=== PATIENT | female | born 1995 | race Caucasian/White ===

== ENCOUNTER 2018-08-18 09:32 | Outpatient (CLI) | payer OTHER ==
--- NOTE | 2018-08-18 10:37 | ULT ---
RIGHT UPPER QUADRANT ULTRASOUND: Date: 08/18/18 HISTORY: Right upper quadrant pain. FINDINGS: Real-time imaging of the right upper quadrant shows echogenic foci with shadowing within the gallblad julianne compatible with small stones. There are marked fatty changes of the liver, which measures 18.4 cm in length. The common duct is in the 5.0 mm range. Right kidney is normal in size. It shows some moderate right-sided hydronephrosis of uncertain etiolo gy. IMPRESSION: 1. Multiple cholelithiasis with a normal caliber common duct. 2. Moderate right-sided hydronephrosis of uncertain etiology. 3. Diffuse fatty change of the liver. POS: TPC
== END 2018-08-18 09:33 | disposition home or self-care (01) ==
LOC: SCSULT 09:32
PROVIDERS: ATTEND Advanced Practice Midwife
DX: R10.11 Right upper quadrant pain (principal); K80.20 Calculus of gallbladder without cholecystitis without obstruction; K76.0 Fatty (change of) liver, not elsewhere classified; N13.30 Unspecified hydronephrosis
CPT/HCPCS: 76705

== ENCOUNTER 2018-11-06 04:01 | Inpatient (IN) | payer OTHER ==
[2018-11-06] MEDS ORDERED: Meperidine HCl/PF 25 MG/ML VIAL ONE (12:10)
[2018-11-13] MEDS ORDERED: Carboprost 250 MCG/ML AMP IM PRN (06:16)
[2018-11-13] MEDS ORDERED: NS / Oxytocin 40 units/1000ml 1,000 ML IV PRN (06:16)
[2018-11-13] MEDS ORDERED: Misoprostol 200 MCG TAB PR PRN (06:16)
[2018-11-13] MEDS ORDERED: HYDROcodone/Acetaminophen 5/325 mg Tablet PO PRN ×2 (06:16)
[2018-11-13] MEDS ORDERED: Ibuprofen 800 MG TAB PO PRN (06:16)
[2018-11-13] MEDS ORDERED: Methylergonovine 0.2 MG/ML VIAL IM PRN (06:16)
[2018-11-13] MEDS ORDERED: Lidocaine 1% (PF) 30 ML VIAL SC PRN (06:16)
[2018-11-13] MEDS ORDERED: Promethazine HCl 25 MG/ML VIAL IM PRN (06:16)
[2018-11-13] MEDS ORDERED: Diphenoxylate HCl/Atropine Tablet PO PRN ×2 (06:16)
[2018-11-13] MEDS: Lactated Ringer's 1,000 ML IV SCH ×3 (06:20→19:37)
[2018-11-13 06:37] LABS: Hemoglobin 12.4 g/dL (12.0-16.0); Mean Corpuscular HGB CONC 33.3 g/dL (32.0-36.0); Mean Corpuscular Hemoglobin 27.8 pg (27.0-31.0); Mean Corpuscular Volume 83.5 fL (78.0-98.0); Platelet Count 181 thou/uL (130-400); RBC Distribution Width 12.6 % (11.5-14.5); Red Blood Cell (RBC) Count 4.46 mill/uL (4.20-5.40); White Blood Cell (WBC) Count 7.5 thou/uL (4.8-10.8)
[2018-11-13 06:48] VITALS: BMI 32.3
[2018-11-13 07:17] LABS: Syphilis Antibody Nonreactive (Nonreactive); Syphilis Antibody Index 0.03 S/CO (<1.00 Non-Reactive)
[2018-11-13 07:18] LABS: HBSAg Index 0.31 S/CO (0-0.99); Hep B Surf Ag Non-Reactive S/CO (NonReactive)
[2018-11-13] MEDS: NS w/ Oxytocin 10 units 500 ML IV SCH ×2 (07:58→20:56)
[2018-11-13] MEDS: Ondansetron PF 4 MG/2 ML Vial IVP PRN (08:03)
--- NOTE | 2018-11-13 12:59 | PDOC.LDHP ---
Labor and Delivery H&P Chief complaint: scheduled induction (for cholecystitis.) Due date: 12/01/18 Dating criteria: last menstrual period (Verified with first trimester ultrasound ) Grav: 2 Para: 1 OB History Details: G1 Current complications: other (Cholilithiasis Cholicystitis Fatty liver infiltrates) Current medications: pre-chelsey vitamins Previous surgical history: none Allergies/Adverse Reactions: Allergies Allergy/AdvReac Type Severity Reaction Status Date / Time No Known Drug Allergies Allergy Verified 11/13/18 06:30 Social history: none - Physical Exam Vital signs reviewed and normal: yes Abnormal vital signs: 93/52 on admission General: resting, breathing through contractions Heart: RRR Lungs: nonlabored breathing Abdomen: gravid Extremeties: trace edema FHT: category 1 [place] contractions every: q2 - Vaginal Exam cm dilated: 2 Effacement: 50% Station: -2 - OB Labs Blood type: A RH: positive Antibody Screen: negative HIV: negative RPR: negative HEPSAg: negative 1 hour GCT: positive GBS: negative Urine drug screen: negative Rubella: non-immune - Assessment L&D Assessment: medically indicated induction - Plan Plan: admit to L&D, other -: Pitocin AROM - clear fluid anticipate
[2018-11-13] MEDS: Butorphanol Tartrate 1 MG/ML VIAL SLOW IVP PRN ×5 (14:25→22:37)
[2018-11-14] MEDS: Ondansetron PF 4 MG/2 ML Vial IVP PRN (00:01)
--- NOTE | 2018-11-14 00:51 | PDOC.LDPN ---
Labor & Delivery Progress Note - Subjective Subjective: painful contractions - Objective Abnormal vital signs: Temp 99.3 General: NAD Dilation: 8 Effacement: 100% Station: 0 FHT: category 1 [place] contractions every: q2-q2.5 - Assessment (1) Encounter for induction of labor Code(s): Z34.90 - ENCNTR FOR SUPRVSN OF NORMAL , UNSP, UNSP TRIMESTER Current Visit: Yes Status: Acute Plan: continue plan of care -: anticipate
--- NOTE | 2018-11-14 02:01 | PDOC.OPDEL ---
OB Operative/Delivery Note Delivery Dr/Surgeon: Light Pre-Delivery Diagnosis: active labor, medically indicated induction Procedure/Post Delivery Dx: spontaneous vaginal delivery Weeks gestation: 37 Anesthesia: local - Findings A Sex: male Weight: 7 lb 3 oz - 1 min: 9 - 5 min: 9 - Additional Findings/Plan Placenta delivered: spontaneous Repaired Obstetrical Laceration: 1st degree Estimated blood loss: 300mL see nurse note for QBL Post delivery plan: routine recovery
[2018-11-14] MEDS ORDERED: Bisacodyl 10 MG SUPP PR PRN (04:00)
[2018-11-14] MEDS ORDERED: NS / Oxytocin 40 units/1000ml 1,000 ML IV SCH (04:00)
[2018-11-14] MEDS ORDERED: Milk Of Magnesia 30 ML UDCUP PO PRN (04:00)
[2018-11-14] MEDS ORDERED: HYDROcodone/Acetaminophen 5/325 mg Tablet PO PRN (04:00)
[2018-11-14] MEDS ORDERED: Methylergonovine 0.2 MG/ML VIAL IM PRN (04:00)
[2018-11-14] MEDS ORDERED: Benzocaine-Menthol 82.5 ML CAN TOP PRN (04:00)
[2018-11-14] MEDS ORDERED: Misoprostol 200 MCG TAB VAG PRN (04:00)
[2018-11-14] MEDS: HYDROcodone/Acetaminophen 5/325 mg Tablet PO PRN ×3 (04:45→19:44)
[2018-11-14] MEDS: Ferrous Sulfate 325 MG TAB PO SCH ×2 (08:40→16:31)
[2018-11-14] MEDS: Docusate Calcium (SURFAK) 240 MG CAP PO SCH (08:59)
[2018-11-14] MEDS ORDERED: Adacel (T-DAP) 0.5 ML SYRINGE IM ONE (09:00)
--- NOTE | 2018-11-14 16:51 | PDOC.PP ---
Post Progress Note Post Day #: 0 Subjective: Doing well. having some perineal pain, but says it is normal she supposes. Trying to breastfeed, but he has not eaten for the past two times she tried to feed him. PO intake tolerated: yes Flatus: yes Ambulation: yes Vital Signs (12 hours) Temp Pulse Resp BP Pulse Ox 11/14/18 11:23 98.6 F 84 20 109/70 11/14/18 08:18 98.1 F 92 20 91/52 L 97 11/14/18 06:20 98.1 F 79 18 95/59 L Weight Weight 200 lb - Physical Examination General: NAD Cardiovascular: no m/r/g, RRR Respiratory: non-labored breathing Abdominal: lochia (minimal) Extremities: negative homans (B) Psychiatric: A&Ox3, normal affect Result Diagrams: 11/13/18 06:29 Additional Labs: Post Labs Blood Type A POSITIVE 11/13/18 08:08 Hep Bs Antigen Non-Reactive S/CO (NonReactive) 11/13/18 06:29 (1) Encounter for induction of labor Code(s): Z34.90 - ENCNTR FOR SUPRVSN OF NORMAL , UNSP, UNSP TRIMESTER Status: Acute - Assessment/Plan a: G2 now p2 sp following IOL for cholecystitis complicated by 1st degree perineal laceration. P: consultation ordered Routine care Plan for discharge home tomrrow.
[2018-11-14] MEDS: Ibuprofen 800 MG TAB PO SCH (22:36)
[2018-11-15] MEDS: Docusate Calcium (SURFAK) 240 MG CAP PO SCH ×2 (00:53→09:13)
[2018-11-15 01:20] VITALS: TEMP 98.1
[2018-11-15] MEDS: Ibuprofen 800 MG TAB PO SCH ×2 (05:53→14:28)
[2018-11-15 08:02] VITALS: BP 98/56
--- NOTE | 2018-11-15 08:07 | PDOC.PP ---
Post Progress Note Post Day #: 1 Subjective: dong well, getting figured out. Breasts feel different. She is able to urintate, ambulate and pass gas. Her perineum is feeling better. PO intake tolerated: yes Flatus: yes Ambulation: yes Vital Signs (12 hours) Temp Pulse Resp BP Pulse Ox 11/15/18 08:01 98.1 F 65 20 98/56 L 95 11/15/18 00:52 98.1 F 68 16 99/53 L Weight Weight 200 lb - Physical Examination General: NAD Cardiovascular: no m/r/g Respiratory: non-labored breathing Abdominal: lochia (minimal) Extremities: negative homans (B) Skin: no rash Neurological: no gross focal deficits Psychiatric: A&Ox3, normal affect Result Diagrams: 11/13/18 06:29 Additional Labs: Post Labs Blood Type A POSITIVE 11/13/18 08:08 Hep Bs Antigen Non-Reactive S/CO (NonReactive) 11/13/18 06:29 (1) Encounter for induction of labor Code(s): Z34.90 - ENCNTR FOR SUPRVSN OF NORMAL , UNSP, UNSP TRIMESTER Status: Acute (2) (spontaneous vaginal delivery) Code(s): O80 - ENCOUNTER FOR FULL-TERM UNCOMPLICATED DELIVERY Status: Acute (3) Cholecystitis Code(s): K81.9 - CHOLECYSTITIS, UNSPECIFIED Status: Acute - Assessment/Plan A: G2 now P2 sp following Medically indicated IOL for cholecystis and cholelithiasis with a NML PPD #1 exam. P: consult prior to discharge routine care until discharge Inst to call Dr. Wilkes's office to post for cholecyctectomy Call office with any signs of infection discharge home today
[2018-11-15 08:29] LABS: Hemoglobin 9.8 g/dL (12.0-16.0); Mean Corpuscular HGB CONC 33.1 g/dL (32.0-36.0); Mean Corpuscular Hemoglobin 27.8 pg (27.0-31.0); Mean Platelet Volume 9.9 fL (7.4-10.4); Platelet Count 149 thou/uL (130-400); RBC Distribution Width 12.8 % (11.5-14.5); Red Blood Cell (RBC) Count 3.52 mill/uL (4.20-5.40); White Blood Cell (WBC) Count 7.5 thou/uL (4.8-10.8)
[2018-11-15] MEDS: Ferrous Sulfate 325 MG TAB PO SCH (09:15)
[2018-11-15] MEDS ORDERED: Measles/Mumps/Rubella 10 MCG/0.5 ML VIAL SC ONE (13:30)
== END 2018-11-15 17:20 | disposition home or self-care (01) | DRG 806 ==
LOC: L&D/OP 04:01 → EDSTATUS 16:57 → UNDOADMIN 11-10 08:30 → L&D 11-10 08:30 → 3SW 11-14 04:28
PROVIDERS: ADMIT Obstetrics & Gynecology; ATTEND Obstetrics & Gynecology
PROC: 10E0XZZ Delivery of Products of Conception, External Approach (ICD-10-PCS; principal; 2018-11-14)
PROC: 0HQ9XZZ Repair Perineum Skin, External Approach (ICD-10-PCS; 2018-11-14)
PROC: 3E0234Z Introduction of Serum, Toxoid and Vaccine into Muscle, Percutaneous Approach (ICD-10-PCS; 2018-11-15)
DX: O99.62 Diseases of the digestive system complicating childbirth (principal); K80.10 Calculus of gallbladder with chronic cholecystitis without obstruction; Z37.0 Single live birth; Z3A.37 37 weeks gestation of pregnancy; O70.0 First degree perineal laceration during delivery; Z23 Encounter for immunization
CPT/HCPCS: 36415; 85027; 86780; 86850; 86900; 86901; 87340; 90707; 90715; J0595; J2001; J2175; J2405

== ENCOUNTER 2018-11-06 04:07 | Inpatient (IN) | payer OTHER ==
[2018-11-06] MEDS ORDERED: Morphine 2 MG/ML SYRINGE ONE ×2 (04:43→08:06)
[2018-11-06 04:49] LABS: #Lymphocytes 1.2 thou/uL (1.20-3.40); #Monocytes 0.4 thou/uL (0.11-0.59); #Neutrophils 7.3 thou/uL (1.40-6.50); %Basophils 0.1 % (0.0-1.0); %Eosinophils 0.5 % (0.0-10.0); %Lymphocytes 12.9 % (21.0-51.0); %Monocytes 4.3 % (0.0-10.0); %Neutrophils 82.2 % (42.0-75.0); Hemoglobin 11.9 g/dL (12.0-16.0); Mean Corpuscular HGB CONC 33.7 g/dL (32.0-36.0); Mean Corpuscular Hemoglobin 27.9 pg (27.0-31.0); Mean Corpuscular Volume 82.8 fL (78.0-98.0); Mean Platelet Volume 9.6 fL (7.4-10.4); Platelet Count 149 thou/uL (130-400); RBC Distribution Width 12.5 % (11.5-14.5); Red Blood Cell (RBC) Count 4.26 mill/uL (4.20-5.40); White Blood Cell (WBC) Count 8.9 thou/uL (4.8-10.8)
[2018-11-06] MEDS ORDERED: Morphine 4 MG/ML VIAL ONE (05:03)
[2018-11-06] MEDS ORDERED: Ondansetron PF 4 MG/2 ML Vial ONE (05:06)
[2018-11-06 05:20] LABS: ALT (SGPT) 49 U/L (8-55); AST (SGOT) 85 U/L (5-34); Albumin 3.4 g/dL (3.5-5.0); Alkaline Phosphatase 186 U/L (40-150); Anion Gap 16 mmol/L (10-20); BUN (Urea Nitrogen) 6 mg/dL (7.0-18.7); Bilirubin, Total 1.3 mg/dL (0.2-1.2); Calc. Creatinine Clearance 0 mL/min (70-130); Calcium 8.7 mg/dL (7.8-10.44); Carbon Dioxide 18 mmol/L (22-29); Chloride 106 mmol/L (98-107); Estimated GFR-MDRD Greater than 90; Globulin 3.3 g/dL (2.4-3.5); Glucose 121 mg/dL (70-105); Lipase 30 U/L (8-78); Potassium 3.8 mmol/L (3.5-5.1); Protein, Total 6.7 g/dL (6.0-8.3); Sodium 136 mmol/L (136-145)
[2018-11-06] MEDS ORDERED: Piperacillin/Tazobactam 3.375 GM VIAL ONE (08:07)
--- NOTE | 2018-11-06 08:16 | ULT ---
RIGHT UPPER QUADRANT ULTRASOUND: INDICATIONS: History of gallstones. [id number] . Elevated LFTs with right upper quadrant pain. FINDINGS: There are multiple gallstones within the gallbladder. The gallbladder is moderately distended. Ther e is pericholecystic edema and mild gallbladder wall thickening. There is report of a positive sonog raphic Reece sign. The right kidney measures 12.3 x 5.8 x 8 cm. The common bile duct measures 5.8 mm. There is prominent fatty infiltration of the liver. The visualized aspects of the pancreas are unremarkable. There is worsening hydronephrosis of the right kidney, now moderate to severe in exten t when compared to the prior, dating 08/28/2018. A ureteral jet is present within the right aspect o f the bladder. IMPRESSION: 1. Findings suspicious for acute calculous cholecystitis. Recommend surgical consultation. 2. Fatty liver. 3. Worsening moderate to severe right-sided hydronephrosis with a visualized right ureteral jet. Fi ndings are likely related to partial obstruction from the patient's term . 4. Persistent fatty liver. POS: BH
[2018-11-06] MEDS ORDERED: Ondansetron PF 4 MG/2 ML Vial IVP PRN (10:23)
[2018-11-06] MEDS ORDERED: Promethazine HCl 25 MG/ML VIAL IM PRN (10:23)
[2018-11-06] MEDS ORDERED: Lactated Ringer's 1,000 ML IV SCH (10:30)
--- NOTE | 2018-11-06 11:22 | HP ---
TIME OF ADMISSION: 10:15 a.m. REASON FOR ADMISSION: Thirty-six weeks' gestation with acute cholecystitis. HISTORY OF PRESENT ILLNESS: Ms. Farrar is a 23-year-old, G2, P1, EDC of 12/01 placing her at 36 and 3 weeks gestation, who has a known history of cholelithiasis, symptomatic during this . She has also been noted to have a liver ultrasound consistent with fatty infiltration. She presents with one half day of worsening pain, nausea, and vomiting. She was seen in the emergency room with a diagnosis of acute cholecystitis was noted without elevated white count. The patient's liver enzymes were mildly elevated with AST of 85. She is brought to Labor and delivery unit for further evaluation and care. She received Zosyn 3.375 x1 in the emergency room as well as morphine. 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 Blood type A positive, antibody negative. Pap negative. Rubella nonimmune. VDRL nonreactive. Hepatitis B, GC, chlamydia negative. Group B strep pending. 50 g GTT was abnormal. 3-hour GTT was within normal limits. PAST MEDICAL HISTORY: Medical history is significant for cholelithiasis. PAST SURGICAL HISTORY: None. ALLERGIES: DENIES. MEDICATIONS: vitamins. SOCIAL HISTORY: Denies tobacco, alcohol, or IV drug use. FAMILY HISTORY: Noncontributory. REVIEW OF SYSTEMS: Noncontributory. PHYSICAL EXAMINATION: GENERAL: White female resting comfortably. VITAL SIGNS: Currently blood pressure 110/72, pulse 85, respirations are 18, and temperature 98.6. HEENT: Within normal limits. LUNGS: Clear to auscultation bilaterally. HEART: Regular rhythm. ABDOMEN: Soft. She has discomfort in the right upper quadrant to palpation. The fundal height is 36 cm. FHTs 130s to 140s. GENITALIA: Vulva lesions. Vagina, discharge. Cervix parous, 1, 25, -2, cephalic, posterior and soft. EXTREMITIES: No clubbing, cyanosis, or edema. IMPRESSION: Thirty-six weeks' gestation with pain and nausea consistent with acute cholecystitis. No evidence of immediate need for surgical intervention. Of note, the patient's ultrasound revealed moderate hydronephrosis on the right, consistent with as well as some fatty liver and acute calculous cholecystitis. White count is 8.9, hematocrit is 35, and platelet count is 149, base mets within normal limits. AST is elevated at 85, ALT is normal at 49, alkaline phosphatase is 186, total bilirubin is 1.3. PLAN: We will admit the patient, give her Zosyn 3.375 q.6 hours. Begin clear liquid diet. IV fluids. Acute pain control. Follow CBC and LFTs. If the patient is symptomatically improved and LFTs do not worsen, anticipate discharge home at 24 to 48 hours with scheduled induction of labor in seven days, early term 37 weeks' gestation. We will discuss the patient's care with has been previously consulted on her case. Job ID: [id number]
[2018-11-06] MEDS: Lactated Ringer's 1,000 ML IV SCH ×2 (12:06→21:40)
[2018-11-06] MEDS: Meperidine HCl/PF 25 MG/ML VIAL IM/IV PRN ×3 (12:14→21:49)
[2018-11-06] MEDS: Piperacillin/Tazobactam 3.375 GM in Sodium Chloride 0.9% 100 ML IVPB SCH ×2 (14:00→20:02)
[2018-11-06 14:03] VITALS: BMI 32.3
[2018-11-06] MEDS: Mag-Al 1200 mg/1200 mg/30 ML UDCUP PO PRN (17:05)
[2018-11-07] MEDS: Mag-Al 1200 mg/1200 mg/30 ML UDCUP PO PRN (00:13)
[2018-11-07] MEDS: Piperacillin/Tazobactam 3.375 GM in Sodium Chloride 0.9% 100 ML IVPB SCH ×3 (02:12→13:45)
[2018-11-07] MEDS: Lactated Ringer's 1,000 ML IV SCH (05:27)
--- NOTE | 2018-11-07 07:43 | DIS ---
DATE OF ADMISSION: 11/06/2018 DATE OF DISCHARGE: 11/07/2018 DISCHARGE DIAGNOSIS: Third trimester with acute cholecystitis. SUMMARY OF HOSPITAL COURSE: Ms. Farrar was admitted on the with an acute attack of acute cholecystitis. The patient was noted to have gallstones. Pain resolved with antibiotics (Zosyn) and antiemetics. Laboratory initially on admission was with normal white count, normal CBC, mildly elevated AST at 85, alkaline phosphatase at 186, and elevated total bilirubin at 1.3. Her common duct was approximately 5 mm. Ultrasound revealed stones. Findings consistent with acute cholecystitis as well as fatty liver and some moderate hydronephrosis on the right. Current vital signs include a T-max of 98.2, temperature now 98.1, pulse 89, respirations 18, and blood pressure 108/57. The patient is resting comfortably. States her pain and nausea resolved. Physical exam reveals only mild discomfort on palpation of the right upper quadrant and is otherwise unremarkable. IMPRESSION: 36 weeks' gestation with acute cholecystitis, resolving and nausea. PLAN: 1. We will obtain limited OB ultrasound for EFW and CHRISTOPHER prior to discharge today. 2. I have called into Dr. Suarez to see what kinds of antibiotic regimen he would recommend upon discharge. 3. Discharge with Zosyn. 4. Induction of labor at 37 weeks, next Tuesday with Pitocin by Trini Vincent, certified nurse water pipe installer, who is the patient's obstetric provider. Job ID: [id number]
[2018-11-07 07:46] LABS: #Basophils 0.1 thou/uL (0.0-0.2); #Lymphocytes 1.4 thou/uL (1.20-3.40); #Monocytes 0.3 thou/uL (0.11-0.59); #Neutrophils 2.9 thou/uL (1.40-6.50); %Basophils 1.3 % (0.0-1.0); %Eosinophils 0.8 % (0.0-10.0); %Lymphocytes 29.3 % (21.0-51.0); %Monocytes 6.9 % (0.0-10.0); %Neutrophils 61.7 % (42.0-75.0); Hemoglobin 10.8 g/dL (12.0-16.0); Mean Corpuscular HGB CONC 33.9 g/dL (32.0-36.0); Mean Corpuscular Hemoglobin 28.1 pg (27.0-31.0); Mean Corpuscular Volume 82.9 fL (78.0-98.0); Mean Platelet Volume 9.2 fL (7.4-10.4); Platelet Count 154 thou/uL (130-400); RBC Distribution Width 12.4 % (11.5-14.5); Red Blood Cell (RBC) Count 3.85 mill/uL (4.20-5.40); White Blood Cell (WBC) Count 4.6 thou/uL (4.8-10.8)
[2018-11-07 08:00] LABS: ALT (SGPT) 86 U/L (8-55); AST (SGOT) 92 U/L (5-34); Albumin 2.8 g/dL (3.5-5.0); Alkaline Phosphatase 190 U/L (40-150); Anion Gap 13 mmol/L (10-20); BUN (Urea Nitrogen) Less than 4 mg/dL (7.0-18.7); Calc. Creatinine Clearance 202 mL/min (70-130); Carbon Dioxide 22 mmol/L (22-29); Chloride 108 mmol/L (98-107); Estimated GFR-MDRD Greater than 90; Globulin 2.9 g/dL (2.4-3.5); Glucose 70 mg/dL (70-105); Potassium 3.8 mmol/L (3.5-5.1); Protein, Total 5.7 g/dL (6.0-8.3); Sodium 139 mmol/L (136-145)
[2018-11-07] MEDS: Meperidine HCl/PF 25 MG/ML VIAL IM/IV PRN (11:03)
--- NOTE | 2018-11-07 11:29 | ULT ---
Ultrasound obstetrical Limited: 11/07/2018 HISTORY: 23-year-old female in third trimester of . Evaluate weight and amniotic fluid volume. FINDINGS: number: Guerrero lie: Cephalic Maternal cervix: Obscured Amniotic fluid volume: CHRISTOPHER 14.5 cm Placenta: Anterior and maternal left lateral. No previa. Head, four-chamber heart, stomach, and bladder are visualized. The rest of the anatomy is not v isualized. heart rate: 120 bpm BPD: 9.4 cm 38 weeks 2 days HC: 33.7 cm 38 weeks 4 days AC: 32.3 cm 36 weeks 2 days FL: 7.1 cm 36 weeks 1 day AUA: 37 weeks 2 days EDC: 11/26/2018 EFW: 3001 g +/- 444 g (6 lbs. 10 oz. +/- 16 ounces) IMPRESSION: 1. Third trimester intrauterine gestation. 2. CHRISTOPHER 14.5 cm 3. Estimated weight of 3001 g +/- 444 g
[2018-11-07 11:42] VITALS: TEMP 97.9
[2018-11-07 16:52] VITALS: BP 112/70
== END 2018-11-07 16:55 | disposition home health service (06) | DRG 832 ==
LOC: ERS 04:07 → OBSVTOIN 10:08 → L&D 10:08 → 3SW 18:22
PROVIDERS: ADMIT Obstetrics & Gynecology; ATTEND Obstetrics & Gynecology
DX: O99.613 Diseases of the digestive system complicating pregnancy, third trimester (principal); K81.0 Acute cholecystitis; O99.343 Other mental disorders complicating pregnancy, third trimester; Z3A.36 36 weeks gestation of pregnancy; F41.9 Anxiety disorder, unspecified; F32.9 Major depressive disorder, single episode, unspecified
CPT/HCPCS: 36415; 76705; 76805; 80053; 83690; 85025; 87081; 96361; 96365; 96372; 96375; 96376; J0500; J2175; J2270; J2405; J2543; J7050

== ENCOUNTER 2018-11-24 19:06 | Inpatient (IN) | payer OTHER ==
[2018-11-24 20:23] LABS: #Eosinphils 0.1 thou/uL (0.0-0.7); #Lymphocytes 1.6 thou/uL (1.20-3.40); #Monocytes 0.6 thou/uL (0.11-0.59); %Basophils 0.2 % (0.0-1.0); %Eosinophils 0.7 % (0.0-10.0); %Lymphocytes 15.2 % (21.0-51.0); %Monocytes 5.7 % (0.0-10.0); %Neutrophils 78.2 % (42.0-75.0); Mean Corpuscular HGB CONC 32.4 g/dL (32.0-36.0); Mean Corpuscular Hemoglobin 27.2 pg (27.0-31.0); Mean Platelet Volume 8.2 fL (7.4-10.4); Platelet Count 280 thou/uL (130-400); RBC Distribution Width 12.4 % (11.5-14.5); Red Blood Cell (RBC) Count 4.78 mill/uL (4.20-5.40); White Blood Cell (WBC) Count 10.2 thou/uL (4.8-10.8)
[2018-11-24 20:45] LABS: ALT (SGPT) 100 U/L (8-55); AST (SGOT) 152 U/L (5-34); Albumin 3.8 g/dL (3.5-5.0); Alkaline Phosphatase 150 U/L (40-150); Anion Gap 15 mmol/L (10-20); BUN (Urea Nitrogen) 8 mg/dL (7.0-18.7); Bilirubin, Total 0.5 mg/dL (0.2-1.2); Calc. Creatinine Clearance 0 mL/min (70-130); Calcium 8.6 mg/dL (7.8-10.44); Carbon Dioxide 23 mmol/L (22-29); Chloride 106 mmol/L (98-107); Estimated GFR-MDRD 84; Globulin 3.2 g/dL (2.4-3.5); Glucose 92 mg/dL (70-105); Lipase 43 U/L (8-78); Potassium 4.3 mmol/L (3.5-5.1); Sodium 140 mmol/L (136-145)
--- NOTE | 2018-11-24 21:23 | ULT ---
Sonogram throughout the quadrant HISTORY: Right upper quadrant pain. FINDINGS: Gallbladder is dilated up to 11.3 cm. Stones and sludge are present within the lumen. Wall is slightly thickened. Small amount of pericholecystic fluid. Patient was reportedly tender over the gallbladder fossa at the time of the exam. Common duct is 0.7 cm. Liver is diffusely echogenic. IMPRESSION: Central biliary obstruction. Acute cholecystitis. Hepatic steatosis.
[2018-11-24] MEDS ORDERED: Fentanyl 100 MCG/2 ML VIAL ONE (21:38)
[2018-11-24] MEDS ORDERED: Dicyclomine 20 MG TAB ONE (21:39)
[2018-11-24] MEDS ORDERED: Ondansetron PF 4 MG/2 ML Vial ONE (21:39)
[2018-11-24] MEDS ORDERED: Piperacillin/Tazobactam 3.375 GM VIAL ONE (21:42)
[2018-11-24 23:59] VITALS: BMI 24.2
[2018-11-25] MEDS ORDERED: Sodium Chloride 0.9% 1,000 ML IV SCH (00:17)
[2018-11-25] MEDS ORDERED: Ondansetron ODT 4 MG TAB SL PRN (00:17)
[2018-11-25] MEDS ORDERED: Ondansetron PF 4 MG/2 ML Vial IVP PRN (00:17)
[2018-11-25] MEDS ORDERED: Morphine 2 MG/ML SYRINGE SLOW IVP PRN (00:32)
[2018-11-25] MEDS: Morphine 4 MG/ML VIAL SLOW IVP PRN ×6 (00:48→21:38)
[2018-11-25] MEDS: Ondansetron PF 4 MG/2 ML Vial SLOW IVP PRN ×3 (00:51→14:59)
[2018-11-25] MEDS: Sodium Chloride 0.9% 1,000 ML IV SCH ×3 (00:54→17:56)
[2018-11-25] MEDS ORDERED: Piperacillin/Tazobactam 3.375 GM in Sodium Chloride 0.9% 100 ML IVPB SCH ×2 (01:00→06:00)
[2018-11-25 05:18] LABS: #Basophils 0.1 thou/uL (0.0-0.2); #Eosinphils 0.1 thou/uL (0.0-0.7); #Lymphocytes 2.2 thou/uL (1.20-3.40); #Monocytes 0.4 thou/uL (0.11-0.59); #Neutrophils 3.9 thou/uL (1.40-6.50); %Basophils 0.9 % (0.0-1.0); %Eosinophils 1.2 % (0.0-10.0); %Lymphocytes 32.8 % (21.0-51.0); %Monocytes 6.3 % (0.0-10.0); %Neutrophils 58.8 % (42.0-75.0); Hemoglobin 12.9 g/dL (12.0-16.0); Mean Corpuscular Hemoglobin 27.1 pg (27.0-31.0); Mean Corpuscular Volume 84.6 fL (78.0-98.0); Mean Platelet Volume 8.6 fL (7.4-10.4); Platelet Count 294 thou/uL (130-400); RBC Distribution Width 12.3 % (11.5-14.5); Red Blood Cell (RBC) Count 4.76 mill/uL (4.20-5.40); White Blood Cell (WBC) Count 6.6 thou/uL (4.8-10.8)
[2018-11-25 06:15] LABS: ALT (SGPT) 282 U/L (8-55); AST (SGOT) 500 U/L (5-34); Albumin 3.7 g/dL (3.5-5.0); Alkaline Phosphatase 187 U/L (40-150); Bilirubin, Direct 0.8 mg/dL (0.1-0.3); Bilirubin, Total 1.4 mg/dL (0.2-1.2); Protein, Total 6.9 g/dL (6.0-8.3)
[2018-11-25] MEDS ORDERED: Prevnar 13-Val Conj/PF 0.5 ML SYRINGE IM ONE (09:00)
[2018-11-25] MEDS ORDERED: Fentanyl 100 MCG/2 ML VIAL ONE (10:02)
[2018-11-25] MEDS ORDERED: B & O ONE (10:08)
[2018-11-25] MEDS ORDERED: Iothalamate Meglumine 60% 50 ML VIAL FS ONE (10:08)
[2018-11-25] MEDS ORDERED: Indomethacin 50 MG SUPP ONE ×2 (10:53→11:17)
[2018-11-25] MEDS ORDERED: Sodium Chloride 0.9% 100 ML ONE (11:03)
[2018-11-25] MEDS ORDERED: Piperacillin/Tazobactam 3.375 GM VIAL ONE (11:03)
[2018-11-25] MEDS ORDERED: Morphine 4 MG/ML VIAL ONE (11:09)
[2018-11-25] MEDS ORDERED: Ondansetron HCl/PF 4 MG/2 ML Vial IVP PRN (12:08)
[2018-11-25] MEDS ORDERED: Morphine Sulfate 2 MG/ML SYRINGE SLOW IVP PRN (12:08)
[2018-11-25] MEDS ORDERED: Promethazine HCl 25 MG/ML VIAL IM PRN (12:08)
[2018-11-25] MEDS ORDERED: Meperidine HCl/PF 25 MG/ML VIAL SLOW IVP PRN (12:08)
[2018-11-25] MEDS ORDERED: HYDROmorphone 2 MG/ML VIAL SLOW IVP PRN (12:08)
[2018-11-25] MEDS ORDERED: Promethazine HCl 25 MG/ML VIAL SLOW IVP PRN (12:08)
[2018-11-25] MEDS ORDERED: Midazolam HCl 2 mg/2 ml Vial ONE (12:20)
--- NOTE | 2018-11-25 12:39 | CON ---
DATE OF CONSULTATION: 11/25/2018 REASON FOR CONSULTATION: Suspected choledocholithiasis. HISTORY OF PRESENT ILLNESS: Ms. Farrar is a pleasant 23-year-old female, who I have been asked to see by Dr. Reuben Wasserman of General Surgery. She recently delivered a baby vaginally, it was done about 3 weeks early secondary to recurrent problems with symptomatic cholelithiasis. She was to have an outpatient cholecystectomy, but yesterday she began to have abdominal pain, nausea, vomiting, and sharp pain in the epigastrium and right upper quadrant radiated into the back. This was her first gallbladder attack since after the . She actually gave last week. She has had no fever or chills. She was admitted to the hospital by Dr. Wasserman for a cholecystectomy. However, she was found to have a common bile duct of 0.7 cm, and her LFTs were elevated with a bilirubin of 0.5, AST and ALT of 152 and 100. However, this morning bilirubin is 1.4, AST and ALT of 500 and 282, alkaline phosphatase of 187. Her lipase was 43. He asked me to see her for ERCP before cholecystectomy based on the high suspicion of choledocholithiasis. Presently, she is without pain. She was started on Zosyn in the ER. PAST MEDICAL HISTORY: Notable for vaginal delivery last week. Baby is doing well. She is . PAST SURGICAL HISTORY: Negative. ALLERGIES: NONE. MEDICATIONS: At home, just vitamin. Medicines here, p.r.n. morphine, Zofran, and normal saline 125 an hour. FAMILY HISTORY: Noncontributory. REVIEW OF SYSTEMS: Negative for chest pain, shortness of breath, dyspnea on exertion, melena, hematochezia, hematemesis, nausea, vomiting, fever, chills, jaundice, or dark urine. SOCIAL HISTORY: Negative for alcohol, drugs, or tobacco. PHYSICAL EXAMINATION: VITAL SIGNS: The patient is resting comfortably in bed. Temperature is 98.3, pulse is 81, blood pressure is 94/61 to 108/67. HEENT: She is nonicteric. Oropharynx is moist, and mucous membranes are pink. LUNGS: Clear. NECK: Supple. HEART: Regular rate and rhythm. ABDOMEN: Soft and nontender. There is no rebound or guarding. There is no Reece sign. EXTREMITIES: No clubbing, cyanosis, or edema. LABORATORY STUDIES: Laboratory test as per HPI. White count 6.6, hemoglobin 12.9, platelet count 294. Ultrasound report reviewed. ASSESSMENT: Suspected choledocholithiasis in a female with known symptomatic gallstones, who presents with upper abdominal pain radiating to her back, which has now resolved, but she has LFTs, which were elevated yesterday and are increasing today. I have explained to the patient she may have passed the stone already, but with the elevated liver enzymes, this is a very high likelihood of choledocholithiasis and we will proceed with clearing the bile duct before surgery, so that if she does have a positive. The alternative would be to perform lap chasity with IOC; however, if she would have a stone and we were not able to extract it with the ERCP, she would have to have a second surgery. She understands this. It was explained to her the risks, benefits, and possible complications of ERCP including perforation, reaction to medication, aspiration, pancreatitis as well as infection. She understands these. PLAN: ERCP today. Job ID: [id number]
--- NOTE | 2018-11-25 12:49 | OP ---
DATE OF PROCEDURE: 11/25/2018 PROCEDURE PERFORMED: Endoscopic retrograde cholangiopancreatography, sphincterotomy, and removal of common bile duct debris. PREOPERATIVE DIAGNOSES: 1. Suspected choledocholithiasis based on the dilated common bile duct on ultrasound and increasing liver function tests. 2. Symptomatic cholelithiasis. 3. 1 week . ANESTHESIA: General endotracheal anesthesia. ANTIBIOTICS: Zosyn was given earlier today. PREOPERATIVE MEDICATIONS: The patient was given a liter of IV fluid and Indocin suppositories before the procedure. POSTOPERATIVE DIAGNOSES: 1. Normal-appearing ampulla. 2. Normal-appearing esophagus and stomach as much as could be visualized in the side-viewing scope. 3. A 9 mm duct with the small amount of debris. After sphincterotomy, small amount of debris passed. No large stone seen. 4. Occlusion cholangiogram at the termination procedure was negative for filling defects, 9 mm balloon passed the sphincterotomy with no resistance. 5. Gallbladder did fill. RECOMMENDATION: Laparoscopic cholecystectomy tomorrow. DESCRIPTION OF PROCEDURE: The patient was informed of the risks, benefits, and possible complications of endoscopy including perforation, reaction to medication, aspiration, and pancreatitis. Informed consent was obtained. The patient was brought to endoscopy suite where she was sedated in standard fashion. Once she was comfortable and intubated in the prone position on the fluoroscopy table, a wood window and door craftsman film was obtained. The side-viewing duodenum scope was advanced to the esophagus, stomach, and second and third portions of duodenum. The ampulla was brought into view. A small free cannulation was obtained, and cholangiogram revealed maybe some small filling defects in the distal duct. A guidewire was placed up into the intrahepatic ductal system. The gallbladder was noted to fill on the cholangiogram. A sphincterotomy was performed over the guidewire with good hemostasis. Small debris was noted to escape from the duct. The guidewire and catheter were removed, and a 9 mm balloon catheter were placed through the scope into the biliary tree. The balloon was inflated in the common hepatic duct and occlusion cholangiogram was performed. The duct was swept 3 times with no large stones seen. No filling defects were noted on occlusion cholangiogram. The balloon was passed the last time 9 mm with no trauma to the ampulla and there was spontaneous drainage of contrast. The scope was removed after the stomach was desufflated. She was brought to recovery room in stable condition. Findings were conveyed to General Surgery. Job ID: [id number]
--- NOTE | 2018-11-25 14:58 | HP ---
CHIEF COMPLAINT: Right upper quadrant abdominal pain. HISTORY OF PRESENT ILLNESS: This is a 23-year-old female, who has had been having intermittent right upper quadrant pain since June and she was . She just delivered last week. Last night, developed a recurrence of severe right upper quadrant pain associated with nausea. No fever. She does report dark urine. PAST MEDICAL HISTORY: Obesity and recent delivery. PAST SURGICAL HISTORY: None. MEDICATIONS: None. ALLERGIES: NO KNOWN DRUG ALLERGIES. SOCIAL HISTORY: No tobacco or alcohol. 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 FAMILY HISTORY: Noncontributory. PHYSICAL EXAMINATION: VITAL SIGNS: Temperature 98.3, pulse 81, blood pressure 94/61. GENERAL: Obese female. She is holding her baby, in no apparent distress. HEENT: No obvious jaundice. LUNGS: Clear. HEART: Regular rate and rhythm. ABDOMEN: Obese, . She is tender in the right upper quadrant. IMAGING STUDIES: Ultrasound shows a dilated gallbladder at 11.3 cm. There are stones and sludge present within the lumen. The wall is slightly thickened. There is a small amount of pericholecystic fluid, and she had a sonographic Reece sign. The common bile duct is 0.7 cm and she has fatty liver. LABORATORY DATA: Her white count is 6.6, hemoglobin and hematocrit are 12 and 40, platelet count 294. Her electrolytes are fine. Her liver function tests are elevated. Her total bilirubin is 1.4, AST 500, ALT of 282, alkaline phosphatase 187. ASSESSMENT: Acute cholecystitis with possible choledocholithiasis. PLAN: GI consultation, IV antibiotics, n.p.o. If they feel ERCP is warranted, do that first, then laparoscopic cholecystectomy. If not, we will proceed with laparoscopic cholecystectomy with cholangiogram. Job ID: [id number]
[2018-11-25] MEDS ORDERED: PROPOFOL 200 MG/20 ML VIAL ONE (15:33)
[2018-11-25] MEDS ORDERED: Dexamethasone 20 MG/5 ML VIAL ONE (15:33)
[2018-11-25] MEDS ORDERED: Lidocaine 1% PF 5 ML VIAL ONE (15:33)
[2018-11-25] MEDS ORDERED: Succinylcholine Chloride 20 MG/ML 10 ml SYRINGE FS ONE (15:33)
[2018-11-25] MEDS ORDERED: Ondansetron PF 4 MG/2 ML Vial ONE (15:33)
[2018-11-25] MEDS ORDERED: PHENYLEPHRINE-NS 100 MCG/ML 10 ML SYRINGE ONE (15:33)
[2018-11-26] MEDS: Morphine 4 MG/ML VIAL SLOW IVP PRN ×2 (00:39→04:44)
[2018-11-26] MEDS: Sodium Chloride 0.9% 1,000 ML IV SCH ×3 (01:03→13:33)
[2018-11-26 05:37] LABS: ALT (SGPT) 339 U/L (8-55); AST (SGOT) 268 U/L (5-34); Albumin 3.5 g/dL (3.5-5.0); Alkaline Phosphatase 220 U/L (40-150); Bilirubin, Direct 0.6 mg/dL (0.1-0.3); Bilirubin, Total 1.1 mg/dL (0.2-1.2); Protein, Total 6.2 g/dL (6.0-8.3)
[2018-11-26] MEDS ORDERED: Fentanyl 100 MCG/2 ML VIAL ONE (07:31)
[2018-11-26] MEDS ORDERED: Ketorolac Tromethamine 30 MG/ML VIAL ONE (07:46)
[2018-11-26] MEDS ORDERED: Famotidine/PF 20 mg/2ml Vial ONE (07:47)
[2018-11-26] MEDS ORDERED: Morphine 4 MG/ML VIAL ONE (07:51)
[2018-11-26] MEDS ORDERED: cefOXitin 2 GM VIAL ONE (08:20)
[2018-11-26] MEDS ORDERED: Sodium Chloride 0.9% 100 ML ONE (08:20)
[2018-11-26] MEDS ORDERED: Famotidine 20 MG TAB PO SCH (09:00)
[2018-11-26] MEDS ORDERED: Famotidine/PF 20 mg/2ml Vial SLOW IVP SCH (09:00)
[2018-11-26] MEDS ORDERED: Enoxaparin Sodium 40 MG/0.4 ML SYRINGE SC SCH (09:00)
[2018-11-26] MEDS ORDERED: PACU-Morphine 4MG/ML VIAL SLOW IVP PRN (09:21)
[2018-11-26] MEDS ORDERED: Meperidine HCl/PF 25 MG/ML VIAL SLOW IVP PRN (09:21)
[2018-11-26] MEDS ORDERED: Promethazine HCl 25 MG/ML VIAL IM PRN ×2 (09:21→09:27)
[2018-11-26] MEDS ORDERED: Morphine Sulfate 2 MG/ML SYRINGE SLOW IVP PRN (09:21)
[2018-11-26] MEDS ORDERED: Promethazine HCl 25 MG/ML VIAL SLOW IVP PRN (09:21)
[2018-11-26] MEDS ORDERED: HYDROcodone/Acetaminophen 10/325 mg Tablet PO PRN ×2 (09:27)
[2018-11-26] MEDS ORDERED: Dextrose 5% in Water 1,000 ML IV PRN (09:27)
[2018-11-26] MEDS ORDERED: Calcium Carbonate 500 MG ChewTAB PO PRN (09:27)
[2018-11-26] MEDS ORDERED: Mag-Al 1200 mg/1200 mg/30 ML UDCUP PO PRN (09:27)
[2018-11-26] MEDS ORDERED: Ondansetron PF 4 MG/2 ML Vial IVP PRN (09:27)
[2018-11-26] MEDS ORDERED: hydrALAZINE 20 MG/ML VIAL SLOW IVP PRN (09:27)
[2018-11-26] MEDS ORDERED: Dextrose 50% Abboject 50 ML SYRINGE SLOW IVP PRN (09:27)
[2018-11-26] MEDS ORDERED: Bupivacaine/Epinephrine 0.25% 30 ML VIAL ONE (09:48)
[2018-11-26] MEDS: Ketorolac Tromethamine 30 MG/ML VIAL IVP SCH ×2 (11:04→17:49)
[2018-11-26] MEDS: D5 1/2 NS w/20 mEq KCL 1,000 ML IV SCH ×2 (11:04→19:23)
[2018-11-26] MEDS ORDERED: Dexamethasone 20 MG/5 ML VIAL ONE (15:37)
[2018-11-26] MEDS ORDERED: Succinylcholine Chloride 20 MG/ML 10 ml SYRINGE FS ONE (15:37)
[2018-11-26] MEDS ORDERED: Ondansetron PF 4 MG/2 ML Vial ONE (15:37)
[2018-11-26] MEDS ORDERED: PROPOFOL 200 MG/20 ML VIAL ONE (15:37)
[2018-11-26] MEDS ORDERED: Lidocaine 1% PF 5 ML VIAL ONE (15:37)
--- NOTE | 2018-11-26 15:43 | PRG ---
DATE OF SERVICE: 11/26/2018 SUBJECTIVE: Ms. Farrar had a lap chasity today. She is doing well. She is looking forward to going home with her baby today. is at the bedside. OBJECTIVE: VITAL SIGNS: Temperature is 98, pulse 76, blood pressure 100/69. ABDOMEN: Soft. LABORATORY DATA: Hemoglobin is 11. Bilirubin 1.1, AST 260, down from 500, ALT 339 down from 282, alkaline phosphatase 220, down from 187. ASSESSMENT: 1. Slight drop in hemoglobin, felt to be related to IV hydration and recent ERCP and surgery. No signs of melena or GI bleeding. 2. Choledocholithiasis, resolved after ERCP with liver enzymes improving. 3. Status post laparoscopic cholecystectomy for symptomatic cholelithiasis. PLAN: The patient is going home and follow up Dr. Wasserman in the office in a few weeks for a routine postop followup. I would be happy to see her back as needed. Job ID: [id number]
--- NOTE | 2018-11-26 16:01 | RAD ---
Chest one view HISTORY: Left chest pain. Cholecystectomy 12 days ago. FINDINGS: No comparison. Cardiac silhouette and pulmonary vasculature are unremarkable. Mediastinum i s midline. No lobar consolidation or evidence of pneumothorax. Small amount of gas in the right hemidiaphragm and liver. IMPRESSION: Small amount of residual pneumoperitoneum from recent surgery. No active cardiopulmonary abnormalities..
[2018-11-26 17:09] LABS: #Lymphocytes 1.4 thou/uL (1.20-3.40); #Monocytes 0.4 thou/uL (0.11-0.59); #Neutrophils 7.1 thou/uL (1.40-6.50); %Basophils 0.4 % (0.0-1.0); %Eosinophils 0.1 % (0.0-10.0); %Lymphocytes 15.7 % (21.0-51.0); %Monocytes 4.2 % (0.0-10.0); %Neutrophils 79.5 % (42.0-75.0); Hemoglobin 10.7 g/dL (12.0-16.0); Mean Corpuscular HGB CONC 32.3 g/dL (32.0-36.0); Mean Corpuscular Hemoglobin 27.6 pg (27.0-31.0); Mean Corpuscular Volume 85.4 fL (78.0-98.0); Mean Platelet Volume 8.8 fL (7.4-10.4); Platelet Count 203 thou/uL (130-400); RBC Distribution Width 12.3 % (11.5-14.5); Red Blood Cell (RBC) Count 3.89 mill/uL (4.20-5.40)
[2018-11-26 17:14] VITALS: BP 97/64; TEMP 98.3
[2018-11-26 17:29] LABS: ALT (SGPT) 291 U/L (8-55); AST (SGOT) 175 U/L (5-34); Albumin 3.4 g/dL (3.5-5.0); Alkaline Phosphatase 196 U/L (40-150); Bilirubin, Direct 0.2 mg/dL (0.1-0.3); Bilirubin, Total 0.4 mg/dL (0.2-1.2); Lipase 30 U/L (8-78); Protein, Total 5.9 g/dL (6.0-8.3)
--- NOTE | 2018-11-26 19:06 | CT ---
CT arteriogram chest with IV contrast and 3-D imaging HISTORY: Chest pain. Recent abdominal surgery. FINDINGS: There is good contrast opacification the pulmonary arteries and thoracic aorta with normal branching of the great vessels. Minimal atelectasis at the left posterolateral lung base. No pneumothorax or mediastinal adenopathy. Small amount of free air remains within the upper anterior ab domen. IMPRESSION: No CT evidence of pulmonary embolus.
[2018-11-26] MEDS ORDERED: Betamethasone 0.1% Cream 15 GM TUBE TOP SCH (21:00)
--- NOTE | 2018-11-26 23:48 | CON ---
DATE OF CONSULTATION: REASON FOR CONSULTATION: For chest pain. HISTORY OF PRESENT ILLNESS: Ms. Farrar is a very pleasant 23-year-old female, who is about 12 days . She has no significant prior medical history. She began having epigastric and right upper quadrant pain toward the end of her and after she delivered, she had fairly severe abdominal pain, where she was admitted by General Surgery and she was found to have cholelithiasis as well as choledocholithiasis. She underwent ERCP and sphincterotomy, and this was followed up by a laparoscopic cholecystectomy. She was doing well and was actually being prepared for discharge, when she began having pain in the left side of her chest. It was sharp in character but not related to inspiration. It was fairly severe and as a result, we were consulted for evaluation of the pain. She had a chest x-ray done, which was essentially negative as well as an EKG, which showed sinus bradycardia and there were no significant ST-wave changes. She says she has gotten up and walked some and since then, the pain has completely resolved. She also notes some swelling on her left side of her cheek, but no pain in that area. No vesicles in that area and that has actually gotten a little bit better. She denies any leg pain or leg swelling. She also denies any trouble breathing or shortness of breath. No palpitations. REVIEW OF SYSTEMS: All systems were reviewed and were negative except for that mentioned in the history of present illness. PAST MEDICAL HISTORY: Significant for obesity as well as cholelithiasis. PAST SURGICAL HISTORY: She had a laparoscopic cholecystectomy today as well as an ERCP and sphincterotomy. ALLERGIES: NO KNOWN DRUG ALLERGIES. FAMILY HISTORY: No history of any heritable diseases. SOCIAL HISTORY: She is a nonsmoker and nondrinker. She is and this is her second child and it was a normal vaginal delivery. CURRENT MEDICATIONS: She was on some antibiotics prior to admission. PHYSICAL EXAMINATION: GENERAL: She is alert and oriented. She appears to be in no acute distress. She is well developed and well nourished. VITAL SIGNS: Blood pressure was 100/57, heart rate 69, respiratory rate is 16, temperature is 98.1, and O2 saturation is 95% on room air. HEENT: Her pupils are equal, round, and reactive to light. Extraocular muscles are intact. Her sclerae are anicteric. Throat; there is no erythema, no exudates. NECK: No adenopathy, no bruits. LUNGS: Clear to auscultation. There was no wheezing or rales, no rhonchi. CARDIOVASCULAR: She has a normal S1 and S2. No S3 or S4. No murmurs, clicks, or rubs. ABDOMEN: Obese. It is soft, nontender, and nondistended. Positive for bowel sounds. No rebound or guarding. EXTREMITIES: On her extremities, there is no clubbing or cyanosis. No edema. NEUROLOGICAL: Her cranial nerves 2 through 12 are grossly intact. Muscle strength is 5/5 in both her upper and lower extremities. SKIN AND INTEGUMENT: She does have an erythematous rash on the left cheek, it is like a slapped cheek in appearance, but there are no vesicles. There is no induration or any warmth and no significant rashes on the remainder of her skin, which is visible. LABORATORY DATA: CBC; the white blood cell count is 9.0, hemoglobin 10.7, hematocrit is 33.2, and platelet count is 203. She had liver function tests done earlier. AST was 268, ALT is 339, alkaline phosphatase is 220, and total bilirubin was 1.1. ASSESSMENT: 1. This is a pleasant 23-year-old female, who is 12 days and had endoscopic retrograde cholangiopancreatography and sphincterotomy on this admission and a laparoscopic cholecystectomy earlier today. She presented with some left-sided chest pain, which has since resolved. Likely, this is some type of musculoskeletal pain or possibly pain from the insufflation of air for the laparoscopic cholecystectomy as it is completely resolved now. However, given her recent state and recent surgery and she does have an elevated BMI, we will go ahead and get a CT angiogram of her chest to rule out pulmonary embolism. Unfortunately, a D-dimer would be nondiagnostic in the setting of a recent surgery as it is likely to be elevated, therefore, the CTA. If this is negative, then I suspect from the Internal Medicine standpoint, she can be discharged home. 2. Facial rash or facial erythema. I suspect this is likely a rash possibly from the tape used for surgery. It does not appear to be herpes zoster or shingles. She can likely use some topical hydrocortisone and it looks like it is improving already. Job ID: [id number]
--- NOTE | 2018-11-27 01:59 | DIS ---
DATE OF ADMISSION: 11/24/2018 DATE OF DISCHARGE: 11/26/2018 DISCHARGE DIAGNOSIS: Acute cholecystitis. PROCEDURES DURING ADMISSION: Endoscopic retrograde cholangiopancreatography with sphincterotomy, laparoscopic cholecystectomy. HOSPITAL COURSE: The patient was admitted, given IV fluids, IV antibiotics. Her LFTs started climbing including her bilirubin. GI was consulted. They performed an ERCP, did not really see any stones. Post procedure the following day, she underwent a laparoscopic cholecystectomy. Postoperatively, she is doing well. Pain is controlled on p.o. medications. She is discharged home, tolerating diet. She will follow up with me in 2 weeks. Job ID: [id number]
--- NOTE | 2018-11-27 11:04 | OP ---
DATE OF PROCEDURE: 11/26/2018 PREOPERATIVE DIAGNOSIS: Cholecystitis. POSTOPERATIVE DIAGNOSIS: Cholecystitis. PROCEDURE PERFORMED: Laparoscopic cholecystectomy. INDICATIONS FOR PROCEDURE: The patient is a 23-year-old female, who has recently delivered vaginally to last week, who has been having biliary colic throughout her , came in with an acute exacerbation with elevated liver functions, underwent ERCP yesterday. FINDINGS: Distended gallbladder, small caliber cystic duct, slightly thickened gallbladder wall. DESCRIPTION OF PROCEDURE: After informed consent was obtained, the patient was taken to the operating room, given general endotracheal anesthesia. She was placed in supine position. Abdomen was prepped and draped in usual fashion. Local anesthesia was infiltrated subcutaneously and deep. A subumbilical incision was performed. Subcutaneous was divided sharply. The fascia was grasped and 2 stay sutures of 0 Vicryl placed in each side of midline. Midline was incised. Digital palpation revealed no local adhesions. A blunt 12 mm trocar was inserted. Pneumoperitoneum was created to a pressure of 15 mmHg. A 0-degree laparoscope was inserted under direct vision. Three 5 mm ports were placed subcostally. Gallbladder was grasped and advanced superiorly. Peritoneum dissected to expose the cystic duct, artery, and critical view. The duct and artery were triply ligated with hemoclips and divided. The gallbladder was removed from its fossa utilizing electrocautery, removed from the abdomen through the umbilical port. Hemostasis was assured. Trocars and retractors were removed. The fascia was closed with interrupted 0 Vicryl suture. The skin was closed with interrupted 4-0 Rapide. Dermabond was applied. The patient tolerated the procedure well and transferred to Recovery in good condition. Sponge and needle count verified correct x2. Job ID: [id number]
--- NOTE | 2018-11-27 22:47 | EKG ---
Test Reason : Blood Pressure : / mmHG Vent. Rate : 058 BPM Atrial Rate : 058 BPM P-R Int : 134 ms QRS Dur : 094 ms QT Int : 426 ms P-R-T Axes : 028 020 029 degrees QTc Int : 418 ms Sinus bradycardia with sinus arrhythmia Otherwise normal ECG No previous ECGs available Confirmed by Rhea ANTOINE ([id number]) on 11/27/2018 10:46:50 PM Referred By: Confirmed By:Rhea ANTOINE
== END 2018-11-26 20:08 | disposition home or self-care (01) | DRG 769 ==
LOC: ERS 19:06 → SURG B 21:40 → OBSVTOIN 21:40
PROVIDERS: ADMIT Surgery; ATTEND Surgery
PROC: 0F798ZZ Dilation of Common Bile Duct, Via Natural or Artificial Opening Endoscopic (ICD-10-PCS; 2018-11-25)
PROC: 0FT44ZZ Resection of Gallbladder, Percutaneous Endoscopic Approach (ICD-10-PCS; principal; 2018-11-26)
DX: O99.63 Diseases of the digestive system complicating the puerperium (principal); K80.62 Calculus of gallbladder and bile duct with acute cholecystitis without obstruction; O99.215 Obesity complicating the puerperium; O99.345 Other mental disorders complicating the puerperium; E66.9 Obesity, unspecified; F41.9 Anxiety disorder, unspecified; F32.9 Major depressive disorder, single episode, unspecified
CPT/HCPCS: 36415; 71045; 71275; 74330; 76705; 80053; 80076; 83690; 85014; 85018; 85025; 88304; 93005; 93010; 96374; 96375; J0131; J0694; J1100; J1885; J2001; J2250; J2270; J2405; J2543; J2704; J3010; J3490; Q9961; S0028